=== PATIENT | female | born 1965 | race Hispanic/Latino ===

== ENCOUNTER 2017-07-09 08:58 | Outpatient (CLI) | payer OTHER ==
[2017-07-09 10:37] LABS: Estimated GFR-MDRD - POC Greater than 90
--- NOTE | 2017-07-09 10:50 | CT ---
CHEST AND ABDOMEN CT SCAN WITH IV CONTRAST: History: Hodgkin's disease, post chemotherapy. Comparison: 02-08-[address] scan, PET CT scan 03-02-17 FINDINGS: There is residual soft tissue changes in the upper right paratracheal and pretracheal region measurin g approximately 2 x 3.3 cm, stable from the prior study. In addition, there is some increased soft ti ssue in the subcarinal and azygoesophageal region measuring approximately 2.2 cm in size, stable from the prior study. These regions of soft tissue were not PET avid at the time of the prior PET scan. S table linear and parenchymal changes in the right lung base. No evidence of pleural effusion or peric ardial effusion. No new pulmonary parenchymal mass. No new adenopathy. In the abdomen small stable retroperitoneal lymph nodes. Multilevel lumbar spine canal and lateral re cess stenosis, stable. No renal calculus or acute obstruction. No bowel obstruction. IMPRESSION: Stable soft tissue changes in the mediastinum. No new metastasis. Unchanged from prior exam 02-08-17. POS: [facility]
[2017-07-09] MEDS ORDERED: Iopamidol 370 76% 100 ML VIAL ONE (14:12)
== END 2017-07-09 08:59 | disposition home or self-care (01) ==
LOC: CT 08:58
PROVIDERS: ATTEND Internal Medicine Medical Oncology
DX: C81.90 Hodgkin lymphoma, unspecified, unspecified site (principal)
CPT/HCPCS: 71260; 74160

== ENCOUNTER 2018-06-20 11:10 | Emergency (ER) | payer SELFPAY ==
[2018-06-20] MEDS ORDERED: diphenhydrAMINE 50 MG/ML VIAL ONE (11:43)
[2018-06-20] MEDS ORDERED: Metoclopramide HCl 10 MG/2 ML VIAL ONE (11:43)
[2018-06-20 11:45] LABS: #Basophils 0.1 thou/uL (0.0-0.2); #Eosinphils 0.1 thou/uL (0.0-0.7); #Monocytes 0.4 thou/uL (0.11-0.59); #Neutrophils 7.8 thou/uL (1.40-6.50); %Basophils 0.9 % (0.0-1.0); %Eosinophils 1.1 % (0.0-10.0); %Lymphocytes 26.4 % (21.0-51.0); %Monocytes 3.6 % (0.0-10.0); %Neutrophils 67.9 % (42.0-75.0); Hemoglobin 12.4 g/dL (12.0-16.0); Mean Corpuscular HGB CONC 32.6 g/dL (32.0-36.0); Mean Corpuscular Hemoglobin 29.3 pg (27.0-31.0); Mean Corpuscular Volume 89.6 fL (78.0-98.0); Mean Platelet Volume 8.6 fL (7.4-10.4); Platelet Count 283 thou/uL (130-400); RBC Distribution Width 12.2 % (11.5-14.5); Red Blood Cell (RBC) Count 4.24 mill/uL (4.20-5.40); White Blood Cell (WBC) Count 11.5 thou/uL (4.8-10.8)
[2018-06-20 11:52] LABS: Prothrombin Time 12.9 SEC (12.0-14.7)
--- NOTE | 2018-06-20 12:03 | CT ---
CT BRAIN NONCONTRAST: HISTORY: 53-year-old female with headache of sudden onset. FINDINGS: There is no midline shift or any other mass effect. There is no evidence of acute intracranial hemor rhage, large cortical infarct, obstructive hydrocephalus, or extraaxial fluid collection. The calvar ium is intact. IMPRESSION: No acute intracranial findings. jn [] POS: [facility]
[2018-06-20 12:17] LABS: ALT (SGPT) 25 U/L (8-55); AST (SGOT) 23 U/L (5-34); Albumin 4.3 g/dL (3.5-5.0); Alkaline Phosphatase 94 U/L (40-150); Anion Gap 15 mmol/L (10-20); BUN (Urea Nitrogen) 12 mg/dL (9.8-20.1); Bilirubin, Total 0.4 mg/dL (0.2-1.2); Calc. Creatinine Clearance 0 mL/min (70-130); Calcium 9.4 mg/dL (7.8-10.44); Carbon Dioxide 24 mmol/L (22-29); Chloride 103 mmol/L (98-107); Estimated GFR-MDRD 81; Globulin 3.3 g/dL (2.4-3.5); Glucose 251 mg/dL (70-105); Potassium 3.8 mmol/L (3.5-5.1); Protein, Total 7.6 g/dL (6.0-8.3); Sodium 138 mmol/L (136-145)
[2018-06-20] MEDS ORDERED: Ketorolac Tromethamine 30 MG/ML VIAL ONE (13:07)
[2018-06-20] MEDS ORDERED: Acetaminophen 500 MG TAB ONE (13:07)
[2018-06-20] MEDS ORDERED: methylPREDNISolone Sod Succ/PF 125 MG/2 ML VIAL ONE (15:04)
[2018-06-20] MEDS ORDERED: Magnesium 2 GM/50 ML 2 GM in Premix Bag 1 BAG IVPB SCH (15:15)
[2018-06-20] MEDS ORDERED: Morphine 4 MG/ML VIAL ONE (16:40)
== END 2018-06-20 18:30 | disposition home or self-care (01) ==
LOC: ERS 11:10
DX: R51 Headache (principal); R11.2 Nausea with vomiting, unspecified; I10 Essential (primary) hypertension; D64.9 Anemia, unspecified; E11.9 Type 2 diabetes mellitus without complications; E78.5 Hyperlipidemia, unspecified; Z79.899 Other long term (current) drug therapy; Z79.84 Long term (current) use of oral hypoglycemic drugs
CPT/HCPCS: 70450; 80053; 85025; 85610; 85730; 96361; 96365; 96367; 96375; J1200; J1885; J2270; J2765; J2930; J7050

== ENCOUNTER 2018-08-08 09:39 | Outpatient (CLI) | payer OTHER, SELFPAY ==
[2018-08-08] MEDS ORDERED: Iopamidol 370 76% 100 ML VIAL ONE (10:42)
--- NOTE | 2018-08-08 12:16 | CT ---
CT CHEST WITH CONTRAST: CT ABDOMEN WITH CONTRAST: CT PELVIS WITH CONTRAST: HISTORY: Hodgkin's lymphoma. COMPARISON: CT chest from 07/09/2017. FINDINGS: A port catheter is in place with the tip in good position, in the inferior SVC. No pericardial effus ion. There is mild scarring in the lung bases. No suspicious pulmonary nodule. No pneumothorax. No effu migue. The thyroid is unremarkable. The soft tissue confluent in the pretracheal coni chains has not grown in size and has not significantly changed, still measuring 3.2 x 2 cm. Small AP window lymph nodes measure 5 mm in short axis, unchanged. No axillary adenopathy. No internal mammary adenopathy. There are no dilated loops of large or small bowel. No free intraperitoneal gas or fluid. No new re troperitoneal adenopathy. The aortoiliac contour is nonaneurysmal. The liver, spleen, and gallbladder are unremarkable, as wel l as the pancreas. There is no acute osseous abnormality. IMPRESSION: Unchanged examination of the chest and abdomen, with a small focus of soft tissue density in the pret manpreet coni region, which may be sequela of treated disease. No evidence of disease progression or new disease. No acute inflammatory process within the chest, abdomen, or pelvis. POS: [facility]
== END 2018-08-08 09:40 | disposition home or self-care (01) ==
LOC: CT 09:39
PROVIDERS: ATTEND Internal Medicine Medical Oncology
DX: C81.48 Lymphocyte-rich Hodgkin lymphoma, lymph nodes of multiple sites (principal)
CPT/HCPCS: 71260; 74177

== ENCOUNTER 2019-05-17 12:52 | Outpatient (CLI) | payer OTHER ==
--- NOTE | 2019-05-17 14:56 | RAD ---
RIGHT HIP 2 VIEWS: Date: 05/17/19 HISTORY: Hip pain. FINDINGS: Joint space is fairly well preserved. Bones appear mildly demineralized. Some minimal osteophytic rebecca nge is seen. No acute bony process. IMPRESSION: No acute findings. POS: [facility]
== END 2019-05-17 12:53 | disposition home or self-care (01) ==
LOC: BICRAD 12:52
PROVIDERS: ATTEND Family Medicine
DX: M25.551 Pain in right hip (principal)

== ENCOUNTER 2019-06-07 07:42 | Emergency (ER) | payer SELFPAY | END 2019-06-07 08:13 | disposition home or self-care (01) | LOC: ERS 07:42 | DX: J11.1 Influenza due to unidentified influenza virus with other respiratory manifestations (principal); E78.5 Hyperlipidemia, unspecified; I10 Essential (primary) hypertension; E11.9 Type 2 diabetes mellitus without complications; Z79.899 Other long term (current) drug therapy; Z79.84 Long term (current) use of oral hypoglycemic drugs | CPT/HCPCS: 99283 ==

== ENCOUNTER 2019-07-20 08:42 | Outpatient (CLI) | payer OTHER ==
--- NOTE | 2019-07-20 09:36 | CT ---
CT Chest Abd Pelvis W Con HISTORY: Hodgkin's lymphoma COMPARISON: 08/08/2018 FINDINGS: The soft tissue density in the pretracheal and paratracheal regions appear smaller. No mediastinal, h ilar or axillary mass or lymphadenopathy seen. No pleural or pericardial effusions are identified. No lung nodules are noted. Mild scarring in the lungs are again seen. There is fatty infiltration of the liver without focal mass or abnormal biliary duct dilatation. No c alcified gallstones are seen. The spleen, pancreas, adrenal glands and kidneys appear normal. No free air or free fluid or lymphadenopathy seen in the abdomen or pelvis. The small bowel loops are not abnormally dilated. Uterine fibroids again seen. There are vascular calcifications without evidence of aneurysmal dilatation of the thoracoabdominal a maria a. There are degenerative changes in the thoracolumbar spine. IMPRESSION: No CT evidence of disease progression or new disease.
[2019-07-20] MEDS ORDERED: Iopamidol 370 76% 100 ML VIAL ONE (13:12)
== END 2019-07-20 08:43 | disposition home or self-care (01) ==
LOC: CT 08:42
PROVIDERS: ATTEND Internal Medicine Medical Oncology
DX: C81.48 Lymphocyte-rich Hodgkin lymphoma, lymph nodes of multiple sites (principal); R10.9 Unspecified abdominal pain
CPT/HCPCS: 71260; 74177; Q9967

== ENCOUNTER 2019-12-22 04:36 | Outpatient (CLI) | payer OTHER ==
[2019-12-23 12:37] LABS: SARS-CoV-2 MS2 Positive; SARS-CoV-2 N Gene Negative; SARS-CoV-2 S Gene Negative; SARS-CoV-2 orf1ab Negative
== END 2019-12-22 04:37 | disposition home or self-care (01) ==
LOC: LABBT 04:36
PROVIDERS: ATTEND Ophthalmology Retina Specialist
DX: Z01.812 Encounter for preprocedural laboratory examination (principal); Z11.59 Encounter for screening for other viral diseases; E11.3591 Type 2 diabetes mellitus with proliferative diabetic retinopathy without macular edema, right eye
CPT/HCPCS: 87635; U0003

== ENCOUNTER 2019-12-26 06:28 | Day surgery (SDC) | payer OTHER ==
[2019-12-21 13:09] VITALS: BMI 30.9
[~2019-12-26 06:28] MED LIST: EPINEPHrine 0.3 MG in Ophthalmic Irrigation Solution 500 ML IRR SCH
[2019-12-26] MEDS ORDERED: Cyclopentolate 1% Opth Drop 2 ML BOT ONE (06:44)
[2019-12-26] MEDS ORDERED: Phenylephrine 2.5% Ophth Soln 5 ML BOT ONE (06:44)
[2019-12-26] MEDS ORDERED: Midazolam HCl 2 mg/2 ml Vial ONE (06:47)
[2019-12-26] MEDS ORDERED: Fentanyl 100 MCG/2 ML VIAL ONE (06:47)
[2019-12-26] MEDS ORDERED: Racepinephrine 2.25% 0.5 ML NEB ONE (09:41)
[2019-12-26] MEDS ORDERED: Sodium Chloride For Inhalation 0.9% 3 ML NEB ONE (09:42)
[2019-12-26] MEDS ORDERED: Maxitrol 0.1% Opth Oint 3.5 GM TUBE ONE (13:12)
[2019-12-26] MEDS ORDERED: Ondansetron PF 4 MG/2 ML Vial ONE (13:12)
[2019-12-26] MEDS ORDERED: Metoclopramide HCl 10 MG/2 ML VIAL ONE (13:12)
[2019-12-26] MEDS ORDERED: Lidocaine 1% PF 5 ML VIAL ONE (13:12)
[2019-12-26] MEDS ORDERED: PROPOFOL 200 MG/20 ML VIAL ONE (13:12)
[2019-12-26] MEDS ORDERED: Triamcinolone 40 MG/ML VIAL ONE (13:12)
[2019-12-26] MEDS ORDERED: Bupivacaine PF 0.75% SDV 10 ML ONE (13:12)
[2019-12-26] MEDS ORDERED: Lidocaine 4% PF 5 ML AMP ONE (13:12)
--- NOTE | 2019-12-26 14:04 | OP ---
DATE OF PROCEDURE: 12/26/2019 PRINCIPAL PREOPERATIVE DIAGNOSES: 1. Proliferative diabetic retinopathy with vitreous hemorrhage, right eye. 2. Proliferative diabetic retinopathy, left eye. 3. Vitreous hemorrhage, left eye. 4. Tractional retinal detachment, macula-on, left eye. POSTOPERATIVE DIAGNOSES: 1. Proliferative diabetic retinopathy with vitreous hemorrhage, right eye. 2. Proliferative diabetic retinopathy, left eye. 3. Vitreous hemorrhage, left eye. 4. Tractional retinal detachment, macula-on, left eye. PROCEDURES PERFORMED: 1. IDOL panretinal photocoagulation, right eye. 2. A 25-gauge pars plana vitrectomy, left eye. 3. Combined tractional/rhegmatogenous retinal detachment repair, right eye. 4. Panretinal photocoagulation, left eye. ESTIMATED BLOOD LOSS: None. SPECIMENS REMOVED: None. COMPLICATIONS: None. DESCRIPTION OF PROCEDURE: The patient was identified in the preoperative holding area, where the correct eye being right eye for panretinal photocoagulation and the left eye for vitrectomy were marked appropriately. The patient was taken to the operating room, where general anesthesia was induced. A wire-clip lid speculum was placed in the right eye. Using the indirect ophthalmoscope, panretinal photocoagulation was placed on the right eye. A partial vitreous hemorrhage obscured a portion of the fundus inhibiting complete panretinal photocoagulation from being placed particularly inferiorly. Following indirect laser, the attention was turned to the left eye, which was prepped and draped in the usual sterile ophthalmic fashion for surgery. A wire-clip lid speculum was placed. A standard 25-gauge pars plana vitrectomy platform was fashioned with trocars placed approximately 4 mm from the limbus. The infusion was noted to be within the vitreous cavity prior to being turned on to infusion pressure of 30 mmHg. The light pipe and microvitrector were introduced in the eye under visualization of the BIOM viewing system. A significant vitreous hemorrhage was noted obscuring visualization of the fundus. A careful core vitrectomy was performed centrally with progressive movement posteriorly to improve visualization of the fundus. A peripheral shave vitrectomy was subsequently performed. Following clearance of the vitreous hemorrhage, a combined tractional rhegmatogenous retinal detachment was noted to the optic nerve. Significant fibrosis was noted within this area. Upon delamination segmentation with the use of the micro vitrector, a small defect was noted on the nasal aspect of this area. Subretinal fluid was aspirated to the safest extent possible and subsequently, Endolaser was used to barricade off the retinal detachment to help prevent it from involving the macula. Additional panretinal photocoagulation was placed in the typical fashion with sparing of the 3 o'clock meridian. The cannulas were sequentially removed and all sclerotomies were noted to be watertight. Subconjunctival Kenalog was injected. The wire-clip lid speculum was removed followed by application of TobraDex ophthalmic ointment and a light patch and shield. The patient tolerated the procedure well and was taken to the outpatient recovery area in good condition. Job ID: [id number]
== END 2019-12-26 11:02 | disposition home or self-care (01) ==
LOC: SDC 06:28
PROVIDERS: ATTEND Ophthalmology Retina Specialist
PROC: 08T43ZZ Resection of Right Vitreous, Percutaneous Approach (ICD-10-PCS; principal; 2019-12-26)
PROC: 08QE3ZZ Repair Right Retina, Percutaneous Approach (ICD-10-PCS; principal; 2019-12-26)
PROC: 08T53ZZ Resection of Left Vitreous, Percutaneous Approach (ICD-10-PCS; principal; 2019-12-26)
PROC: 08B43ZZ Excision of Right Vitreous, Percutaneous Approach (ICD-10-PCS; principal; 2019-12-26)
DX: E11.354 Type 2 diabetes mellitus with proliferative diabetic retinopathy with combined traction retinal detachment and rhegmatogenous retinal detachment (principal); H33.42 Traction detachment of retina, left eye; H43.13 Vitreous hemorrhage, bilateral; Z79.84 Long term (current) use of oral hypoglycemic drugs; Z79.899 Other long term (current) drug therapy; Z88.0 Allergy status to penicillin
CPT/HCPCS: J0171; J2001; J2250; J2405; J2704; J2765; J3010; J3301; J3490

== ENCOUNTER 2023-03-14 18:49 | Emergency (ER) | payer SELFPAY ==
[~2023-03-14 18:49] MED LIST changes: -EPINEPHrine 0.3 MG in Ophthalmic Irrigation Solution 500 ML IRR SCH; +Iopamidol-370 76% 500 ML MDV (1 ML CHARGE) ONE
[2023-03-14 19:36] LABS: #Eosinphils 0.1 thou/uL (0.0-0.7); #Monocytes 0.7 thou/uL (0.11-0.59); #Neutrophils 4.3 thou/uL (1.40-6.50); %Basophils 0.3 % (0.0-1.0); %Eosinophils 1.1 % (0.0-10.0); %Lymphocytes 43.3 % (21.0-51.0); %Monocytes 7.9 % (0.0-10.0); %Neutrophils 47.2 % (42.0-75.0); Hematocrit 45.4 % (36.0-47.0); Hemoglobin 14.7 g/dL (12.0-16.0); Mean Corpuscular HGB CONC 32.4 g/dL (32.0-36.0); Mean Corpuscular Hemoglobin 29.3 pg (27.0-31.0); Mean Corpuscular Volume 90.6 fl (78.0-98.0); Mean Platelet Volume 10.9 fL (7.4-10.4); Platelet Count 283 10x3/uL (130-400); RBC Distribution Width 13.5 % (11.5-14.5); Red Blood Cell (RBC) Count 5.01 mill/uL (4.20-5.40)
[2023-03-14 19:59] LABS: ALT (SGPT) 19 U/L (8-55); AST (SGOT) 22 U/L (5-34); Albumin 4.4 g/dL (3.5-5.0); Alkaline Phosphatase 70 U/L (40-110); Anion Gap 15 mmol/L (10-20); BUN (Urea Nitrogen) 11 mg/dL (9.8-20.1); Bilirubin, Total 0.2 mg/dL (0.2-1.2); Calc. Creatinine Clearance 0 mL/min (70-130); Calcium 9.9 mg/dL (7.8-10.44); Carbon Dioxide 25 mmol/L (22-29); Chloride 100 mmol/L (98-107); Estimated GFR 69; Globulin 3.4 g/dL (2.4-3.5); Glucose 151 mg/dL (70-105); Lipase 43 U/L (8-78); Potassium 4.3 mmol/L (3.5-5.1); Protein, Total 7.8 g/dL (6.0-8.3); Sodium 136 mmol/L (136-145)
[2023-03-14] MEDS ORDERED: Morphine 4 MG/ML VIAL ONE (21:44)
[2023-03-14 21:51] LABS: Troponin I Less than 0.010 ng/mL (< 0.028)
[2023-03-14] MEDS ORDERED: Gabapentin 300 MG CAP PO SCH (22:00)
[2023-03-14 22:59] LABS: Bilirubin Negative (Negative); Blood, Urine Trace (Negative); CAUTI Indications for Culture Acute Hematuria; Clarity Clear (Clear); Glucose, Urine (Dipstick) Greater than 1000 mg/dL (Negative); Ketone, Urine 20 mg/dL (Negative); Leukocyte 500 Leu/uL (Negative); Nitrite Negative (Negative); Protein, Urine (Dipstick) 200 mg/dL (Neg-Trace); Renal Epithelial 0-3 HPF (None Seen); Urobilinogen Normal mg/dL (Less than 2); WBC/HPF 21-50 HPF (0-3); pH, Urine 7.5 (5.0-9.0)
[2023-03-14 23:01] LABS: Bacteria/HPF 1+ HPF (None Seen); Specific Gravity, Urine 1.052 (1.002-1.036)
[2023-03-14 23:03] LABS: Urine Culture Reflex Yes Yes
[2023-03-14] MEDS ORDERED: Acyclovir 800 mg Tablet PO SCH (23:15)
== END 2023-03-14 23:28 | disposition home or self-care (01) ==
LOC: ERS 18:49
DX: B02.9 Zoster without complications (principal); E11.9 Type 2 diabetes mellitus without complications; E78.00 Pure hypercholesterolemia, unspecified; I10 Essential (primary) hypertension; Z79.01 Long term (current) use of anticoagulants; Z79.84 Long term (current) use of oral hypoglycemic drugs; Z79.899 Other long term (current) drug therapy
CPT/HCPCS: 36415; 71045; 71275; 74174; 80053; 81001; 83690; 84484; 85025; 87086; 93005; 96374; J2270; Q9967

== ENCOUNTER 2023-03-17 23:47 | Emergency (ER) | payer SELFPAY ==
[2023-03-18 00:59] LABS: Bacteria/HPF None Seen HPF (None Seen); Bilirubin Negative (Negative); Blood, Urine Negative (Negative); CAUTI Indications for Culture Pelvic or flank pain; Clarity Clear (Clear); Glucose, Urine (Dipstick) Greater than 1000 mg/dL (Negative); Ketone, Urine Negative (Negative); Leukocyte 500 Leu/uL (Negative); Nitrite Negative (Negative); Protein, Urine (Dipstick) 200 mg/dL (Neg-Trace); RBC/HPF 0-3 HPF (0-3); Urobilinogen Normal mg/dL (Less than 2); WBC/HPF 21-50 HPF (0-3); pH, Urine 7.5 (5.0-9.0)
[2023-03-18 01:03] LABS: Urine Culture Reflex Yes Yes
[2023-03-18] MEDS ORDERED: HYDROcodone/Acetaminophen 10/325 mg Tablet ONE (01:09)
== END 2023-03-18 01:57 | disposition home or self-care (01) ==
LOC: ERS 23:47
DX: B02.9 Zoster without complications (principal); I10 Essential (primary) hypertension; D64.9 Anemia, unspecified; E11.9 Type 2 diabetes mellitus without complications
CPT/HCPCS: 81001; 87086; 99284

== ENCOUNTER 2023-07-26 08:43 | Outpatient (CLI) | payer OTHER | END 2023-07-26 08:44 | disposition home or self-care (01) | LOC: RAD 08:43 | PROVIDERS: ATTEND Internal Medicine | DX: R06.00 Dyspnea, unspecified (principal) | CPT/HCPCS: 71046 ==